=== PATIENT | female | born 1980 | race Caucasian/White ===

== ENCOUNTER → 2021-02-02 | Outpatient (CLI) | payer SELFPAY ==
[~2021-02-02] MED LIST: Acidophilus La100 GM; Advil200 M1 PO; DHEA; Fish Oil Conce1 EACH PO; MAGNESIUM400 MG PO; Vitamin D2000 UNIT; ZINC15
[2021-02-03 09:36] LABS: Stool Occult Bld Immuno 1 Negative (NEGATIVE)
== END | disposition home or self-care (01) ==
LOC: LAB 14:00 → LAB SHORT 14:00
PROVIDERS: Internal Medicine Gastroenterology
DX: Z09 Encounter for follow-up examination after completed treatment for conditions other than malignant neoplasm (principal); Z86.010 Personal history of colon polyps
CPT/HCPCS: 82274